=== PATIENT | female | born 1965 | race Caucasian/White ===

== ENCOUNTER 2018-06-03 02:52 | Emergency (ER) | payer BC ==
[2018-06-03] MEDS ORDERED: 0.9 % SODIUM CHLORIDE 1,000 ML BAG IV ONE ×2 (03:05→04:11)
--- NOTE | 2018-06-03 03:11 | Emergency Department Record ---
History of Present Illness - General Stated Complaint: HIGH SUGAR Time Seen by Provider: 06/03/18 02:56 Source: Patient Mode of Arrival: Ambulatory Limitations: No limitations - History of Present Illness Initial Comments: 53 yo female presents with elevated blood sugar and passed out briefly bending over tonight at work. The patient states she has been a diabetic for 4 years. She states she and her former PCP Dr Huffman were not at an 'understanding" with each other over her medical issues and treatment. She states she decided in March to stop all her medications including her diabetes medicine. She stopped checking her blood sugars as well. She has noted increased thirst and urination recently. She was feeling hot and flushed at work tonight at [employer]. She bent over to last picker something on the floor and ended up on the floor. She has noted that standing up quickly recently has caused her to feel lightheaded. No injury. No current pain. She then decided to check her blood sugar. It was over 500. She does not have a current PCP and does not take her past prescriptions because she felt she was on too many medicines for reasons she was unclear. No chest pain, vomiting, shortness of breath, abdominal pain, diarrhea. The patient states her best glycemic control when she was on medication was about 200. MD Complaint: Loss of consciousness -: Hour(s) Prodromal Symptoms: Other (Occurred bending over) -: Second(s) Witnessed: No Injuries Sustained Associated with Event: None Current Symptoms: None History: Other (Quit all her medications) Treatments Prior to Arrival: None - [place] Coma Scale Eye Response: (4) Open spontaneously Motor Response: (6) Obeys commands Verbal Response: (5) Oriented [place] Total: 15 - Related Data Allergies Allergy/AdvReac Type Severity Reaction Status Date / Time nitrofurantoin Allergy RASH Verified 06/03/18 03:06 [From Macrobid] nitrofurantoin Allergy RASH Verified 06/03/18 03:06 macrocrystalline [From Macrobid] Penicillins Allergy SWELLING Verified 06/03/18 03:06 OF THE TONGUE Review of Systems Constitutional: Denies: Chills, Fever, Malaise, Weakness Eyes: Denies: Eye discharge, Eye pain, Vision change ENT: Denies: Congestion, Throat pain Respiratory: Denies: Cough, Dyspnea, Wheezes Cardiovascular: Reports: Syncope. Denies: Arrhythmia, Chest pain, Dyspnea on exertion, Edema, Orthopnea, Palpitations Endocrine: Reports: Polydipsia, Polyuria. Denies: Fatigue Gastrointestinal: Denies: Abdominal pain, Nausea, Vomiting Genitourinary: Denies: Dysuria, Urgency Musculoskeletal: Denies: Arthralgia, Back pain, Myalgia Skin: Denies: Bruising, Change in color, Rash Neurological: Denies: Confusion, Headache, Numbness, Tremors, Vertigo, Weakness Psychiatric: Denies: Anxiety Hematological/Lymphatic: Denies: Blood Clots, Easy bleeding, Easy bruising, Swollen glands Past Medical History - SOCIAL HISTORY Smoking Status: Never smoker - RESPIRATORY Hx Respiratory Disorders: Yes Hx Asthma: Yes (multiple meds to help control) Hx Bronchitis: Yes (states IP 2x/yr) - CARDIOVASCULAR Hx Cardio Disorders: Yes Hx Hypertension: Yes (recent onset still adjusting meds) - NEURO Hx Neuro Disorders: Yes Hx Headaches: Yes (daily) - GI Hx GI Disorders: Yes Hx Wt Loss/Wt Gain: Yes (wt gain 40# in last 2 yrs) - Hx Genitourinary Disorders: Yes Comment:: recently treated for thrush and vaginal yeast - ENDOCRINE Hx Endocrine Disorders: Yes Hx Diabetes: Yes (dx'd 10/15) - MUSCULOSKELETAL Hx Musculoskeletal Disorders: No - PSYCH Hx Psych Problems: No - HEMATOLOGY/ONCOLOGY Hx Hematology/Oncology Disorders: Yes Hx Cancer: Yes (newly dx with right breast cancer) Hx Chemotherapy: No Hx Radiation Therapy: No Family Medical History Hx Cancer: Mother Physical Exam - General General Appearance: Alert, Oriented x3, Cooperative, No acute distress Limitations: No limitations - Head Head exam: Atraumatic, Normal inspection - Eye Eye exam: Normal appearance, PERRL. negative: Conjunctival injection - ENT ENT exam: Normal exam, Mucous membranes moist Ear exam: Normal external inspection Nasal Exam: Normal inspection Mouth exam: Normal external inspection Throat exam: Normal inspection - Neck Neck exam: Normal inspection, Full ROM. negative: Tenderness - Respiratory Respiratory exam: Normal lung sounds bilaterally. negative: Respiratory distress - Cardiovascular Cardiovascular Exam: Regular rate, Normal rhythm, Normal heart sounds. negative : Diastolic murmur, Systolic murmur Peripheral Pulses: 2+: Radial (R), Radial (L) - GI/Abdominal GI/Abdominal exam: Soft. negative: Tenderness - Rectal Rectal exam: Deferred - exam: Deferred - Extremities Extremities exam: Normal inspection. negative: Tenderness - Back Back exam: Denies: CVA tenderness (R), CVA tenderness (L) - Neurological Neurological exam: Alert, CN II-XII intact, Oriented X3. negative: Altered, Motor sensory deficit - Psychiatric Psychiatric exam: Normal affect, Normal mood - Skin Skin exam: Dry, Intact, Normal color, Warm Course Vital Signs 06/03/18 03:00 Temperature 97.8 F Pulse Rate [ 80 Pulse Ox Probe] Respiratory 20 Rate Blood Pressure 179/89 [Left Arm] Pulse Ox 99 - Reevaluation(s) Reevaluation #1: EKG #1: 0304 Rate: 76 Rhythm: sinus Savery: normal Intervals: normal ST segments: normal Prior: none No WPW, No Brugada,Normal Qt 06/03/18 03:17 Medication list on EMR was reviewed. She confirms she has not taken the BP or DM for about 3 months. 06/03/18 03:19 06/03/18 03:57 The labs were reviewed No acute changes on the CBC The CMP demonstrated a normal HCO3 at 23; AG was 17 The A1C is 10 The Venous pH is normal at 7.4 NO DKA. 06/03/18 03:59 Acetone is negative. 06/03/18 04:15 UA is negative for infection 06/03/18 05:29 The glucose is trending down We discussed restarting the Metformin and Lisinopril. She has both medications at home. She has the glucometer and strips. She will call the [facility] on Sunday. She is to check her sugars 3 times daily and keep a log of her levels. We discussed reasons to return as well. Medical Decision Making - Lab Data Result diagrams: 06/03/18 03:20 06/03/18 03:20 Disposition Disposition: Discharge Clinical Impression: Hyperglycemia, Syncope, Nonadherence to medication Disposition: Home, Self-Care Condition: (1) Good Instructions: Diabetic Hyperglycemia (ED) Additional Instructions: Take Metformin and Lisinopril you have at home as directed. Call the number provided for a new family doctor Return to ED if your symptoms worsen or if you have any new concerns. Review the final Emergency Record and test results with your doctor on follow up Keep a log of your daily blood sugars to take when you get an appointment Referrals: ABHIJIT VERA [MEDICAL DOCTOR] - Forms: Patient Portal Access Time of Disposition: 05:33 Quality - Quality Measures Quality Measures: N/A - Blood Pressure Screening Does Patient Have Any of the Following: Active Dx of HTN Blood Pressure Classification: Hypertensive Reading Systolic Measurement: 151 Diastolic Measurement: 74 Screening for High Blood Pressure: Patient Exclusion, Hx of HTN [[id number]]
[2018-06-03 03:26] LABS: BASO % 0.5 % (0-6); EOS % 1.4 % (0-6); GRAN % 75.8 % (47-80); HEMATOCRIT 39.3 % (35.0-47.0); HEMOGLOBIN 13.9 gm/dl (11.6-16.0); LYMPH % 15.8 % (16-45); MEAN CORPUSCULAR HEMOGLOBIN 29.7 pg (27-33); MEAN CORPUSCULAR HGB CONC 35.4 g/dl (32-36); MEAN PLATELET VOLUME 9.7 fl (7.4-10.4); MONO % 6.5 % (0-9); PLATELET COUNT 264 K/uL (130-400); RED BLOOD COUNT 4.68 M/uL (3.80-5.40); WHITE BLOOD COUNT W/O DIFF 7.7 K/uL (4.2-12.2)
[2018-06-03 03:39] LABS: BLOOD UREA NITROGEN 16 mg/dL (6-20)
[2018-06-03 03:40] LABS: CREATININE 0.6 mg/dL (0.5-0.9); EST GLOMERULAR FILTRATION RATE > 60 mL/min
[2018-06-03 03:45] LABS: ALB/GLOB RATIO 1.8 (1.1-1.8); ALBUMIN 4.5 g/dL (4.0-5.0); ALKALINE PHOSPHATASE 126 U/L (35-104); ALT/SGPT 19 U/L (<33); AST/SGOT 21 U/L (10.0-35.0)
[2018-06-03 03:55] LABS: GLUCOSE,RANDOM 488 mg/dL (74-109)
[2018-06-03] MEDS ORDERED: HUMULIN R 100 UNIT/ML VIAL SQ ONE (03:55)
[2018-06-03 03:56] LABS: ACETONE,SERUM NEGATIVE (NEGATIVE)
[2018-06-03 04:11] LABS: URINE APPEARANCE CLEAR; URINE BILIRUBIN NEGATIVE (NEGATIVE); URINE BLOOD NEGATIVE (NEGATIVE); URINE COLOR YELLOW; URINE KETONE NEGATIVE (NEGATIVE); URINE LEUKOCYTE ESTERASE NEGATIVE (NEGATIVE); URINE NITRITE NEGATIVE (NEGATIVE); URINE PROTEIN NEGATIVE (NEGATIVE); URINE UROBILINOGEN 0.2 E.U./dL (0.20 - 1.00)
[2018-06-03] MEDS ORDERED: POTASSIUM CHLORIDE 20 MEQ TABLET PO ONE (04:11)
[2018-06-03 04:13] LABS: URINE GLUCOSE (UA) >=1000 mg/dL (NEGATIVE)
[2018-06-03] MEDS ORDERED: MECLIZINE 25 MG TABLET PO ONE (04:37)
== END 2018-06-03 05:53 | disposition home or self-care (01) ==
LOC: ER 02:52
DX: E09.65 Drug or chemical induced diabetes mellitus with hyperglycemia (principal); T38.3X6A Underdosing of insulin and oral hypoglycemic [antidiabetic] drugs, initial encounter; R55 Syncope and collapse; I10 Essential (primary) hypertension; Z91.128 Patient's intentional underdosing of medication regimen for other reason; Z79.84 Long term (current) use of oral hypoglycemic drugs
CPT/HCPCS: 36416; 80053; 81003; 82009; 82800; 82948; 83036; 85025; 93005; 93010; 96360; 96361; 96372; 99284; J7030

== ENCOUNTER 2019-08-15 06:06 | Day surgery (SDC) | payer BC ==
[2019-08-15] MEDS ORDERED: FENTANYL PF 100MCG/2ML VIAL IV ONE (06:07)
[2019-08-15] MEDS ORDERED: PROPOFOL 10 MG/ML VIAL IV ONE (06:07)
[2019-08-15] MEDS ORDERED: LIDOCAINE 2% MDV (20MG/ML) 20ML VIAL IV ONE (06:07)
--- NOTE | 2019-08-18 07:30 | Operative Note ---
DATE OF SERVICE: 08/15/2019. DATE OF SURGERY: 08/15/2019. REQUESTING PROVIDER: KLEBER Monroe. SURGEON: Juan Chandra MD. POSTOPERATIVE DIAGNOSES: 1. Normal esophagus. 2. Diffuse gastritis. 3. Small gastric bezoar. 4. Normal duodenum. OPERATION: ESOPHAGOGASTRODUODENOSCOPY. REASON FOR PROCEDURE: This is a 54-year-old diabetic who has had persistent epigastric pain with radiation to the lower back, who presented for esophagogastroduodenoscopy. ANESTHESIA: Sedation is per Anesthesia. Pulse oximetry was monitored throughout the procedure to maintain O2 saturation of 90% or greater. Supplemental oxygen was administered via nasal cannula. Cardiac and vital signs were monitored through the duration of the procedure, and they were stable. The standard procedure of esophagogastroduodenoscopy, risks and benefits of the procedure, including the risks of bleeding and perforation, among others, were explained to the patient. She voiced understanding and agrees to have the procedure done. Physical examination was performed, and the patient was found stable for sedation. PROCEDURE: The patient was placed in the left lateral position. Anesthesia was initiated. A plastic bite block was inserted into the oral cavity. The Olympus [id number] gastroscope was introduced into the oral cavity and advanced to the proximal esophagus without difficulty. The esophageal mucosa was carefully examined upon introduction of the gastroscope. The proximal, mid, and distal esophageal mucosa appeared normal. The gastroscope was then advanced into the stomach and surveillance of the stomach revealed diffuse erythema involving the gastric body and antrum, but no ulcers were noted. There was a small residual of food in the stomach. The gastroscope was then advanced into the descending duodenum without difficulty. The duodenal bulb and descending duodenal mucosa appeared normal. The gastroscope was then withdrawn into the stomach and retroflexion maneuver was performed. There were no other lesions noted. Multiple gastric biopsies were obtained. The gastroscope was then withdrawn, and the procedures were terminated. Patient tolerated the procedure well without immediate complications. She remained with stable vital signs and was transferred to the recovery room. RECOMMENDATIONS: 1. We will give her a trial of proton pump inhibitors. 2. I suspect that she may have a diabetic gastroparesis and therefore should consume small meals more frequently. 3. I will see her back in the office as needed. Thank you for allowing me to participate in the care of your patient. EBEN
== END 2019-08-15 08:20 | disposition home or self-care (01) ==
LOC: HOP 06:06
PROVIDERS: ATTEND Internal Medicine Gastroenterology
DX: R10.13 Epigastric pain (principal); K12.1 Other forms of stomatitis; K31.9 Disease of stomach and duodenum, unspecified; K29.70 Gastritis, unspecified, without bleeding; T18.2XXA Foreign body in stomach, initial encounter; E11.43 Type 2 diabetes mellitus with diabetic autonomic (poly)neuropathy; I10 Essential (primary) hypertension; J45.909 Unspecified asthma, uncomplicated